=== PATIENT | male | born 1950 | race African-American/Black ===

== ENCOUNTER 2018-11-25 11:17 | Observation (INO) ==
[2018-11-25] MEDS ORDERED: ONDANSETRON 4 MG/2 ML VIAL IV PRN (13:55)
[2018-11-25] MEDS ORDERED: MAGNESIUM HYDROXIDE SUSP 30 ML UDCUP PO PRN (13:55)
[2018-11-25] MEDS ORDERED: ACETAMINOPHEN 325 MG TABLET PO PRN (13:55)
[2018-11-25] MEDS ORDERED: traMADol 50 MG TABLET PO PRN (13:55)
[2018-11-25 14:36] LABS: Basophils % 0.3 % (0.0-0.8); Eosinophils # 0.1 10*3/uL (0.0-0.87); Eosinophils % 1.4 % (0.00-10.9); Hematocrit 33.9 VOL% (42.0-52.0); Hemoglobin 11.2 GM/DL (14.0-18.0); Immature Granulocytes % 0.8 %; Immature Granulocytes Absolute 0.05 #; Lymphocytes # 1.2 10*3/uL (1.4-4.0); Lymphocytes % 18.6 % (21.2-54.2); Mean Corpuscular Volume 94.7 FL (87-102); Mean Platelet Volume 9.8 FL (9.6-12.0); Monocytes % 10.1 % (1.7-12.7); Neutrophils % 68.8 % (38.7-73.9); Platelet Count 160 T/CUMM (130-400); Red Blood Count 3.58 MC/CUMM (3.8-5.5); White Blood Count 6.2 T/CUMM (4-12)
[2018-11-25 14:53] LABS: Albumin 3.7 G/DL (3.4-5.0); Bilirubin,Total 0.5 MG/DL (0.2-1.0); Calcium 8.9 MG/DL (8.5-10.1); Osmolality,Calculated 260.9 MOS/KG (273-304); Total Protein 7.5 G/DL (6.4-8.3)
[2018-11-25] MEDS: SODIUM CHLORIDE 0.9% 1,000 ML IV SCH (15:52)
[2018-11-25 17:49] LABS: Apearance,Urine CLEAR (Clear); Bilirubin,Urine Negative (Negative); Blood, Urine Negative (Negative); Glucose,Urine (UA) Negative (Negative); Ketones,Urine Negative (Negative); Nitrite,Urine Negative (Negative); Protein,Urine Negative; RBC,Urine <1 /HPF (0-4); Urine Color Straw (Yellow); Urine Specific Gravity 1.004 (1.001-1.035); Urine Urobilinogen < 2.0 EU/DL (0.2-1.0); WBC,Urine 3 /HPF (0-6)
[2018-11-25] MEDS: carBAMazepine 200 MG TABLET PO SCH (21:35)
[2018-11-25] MEDS: MEMANTINE 10 MG TABLET PO SCH (21:35)
[2018-11-25] MEDS: DOCUSATE SODIUM 100 MG CAPSULE PO SCH (21:35)
[2018-11-25] MEDS: MEGESTROL 40 MG TABLET PO SCH (21:35)
[2018-11-26] MEDS: SODIUM CHLORIDE 0.9% 1,000 ML IV SCH ×4 (01:55→21:46)
[2018-11-26 05:32] LABS: Calcium 8.8 MG/DL (8.5-10.1)
[2018-11-26] MEDS: DOCUSATE SODIUM 100 MG CAPSULE PO SCH ×2 (08:55→21:42)
[2018-11-26] MEDS: LINACLOTIDE 145 MCG CAPSULE PO SCH (08:56)
[2018-11-26] MEDS: PANTOPRAZOLE 40 MG TABLET PO SCH (08:56)
[2018-11-26] MEDS: POTASSIUM CHLORIDE 20 MEQ TABLET PO SCH (08:56)
[2018-11-26] MEDS: FERROUS SULFATE 325 MG TABLET PO SCH (08:56)
[2018-11-26] MEDS: MEGESTROL 40 MG TABLET PO SCH ×2 (08:56→21:42)
[2018-11-26] MEDS: carBAMazepine 200 MG TABLET PO SCH ×2 (08:56→21:42)
[2018-11-26] MEDS: FUROSEMIDE 20 MG/2 ML VIAL IV SCH (08:56)
[2018-11-26] MEDS: NICOTINE 14 MG/24 HR PATCH TRANSDERM SCH (08:57)
[2018-11-26] MEDS ORDERED: TUBERCULIN SKIN TEST 0.1 ML SYRINGE INTRADERM ONE (15:37)
[2018-11-26] MEDS: MEMANTINE 10 MG TABLET PO SCH (21:42)
[2018-11-27 06:20] LABS: Calcium 8.6 MG/DL (8.5-10.1); Osmolality,Calculated 274.8 MOS/KG (273-304)
[2018-11-27] MEDS: SODIUM CHLORIDE 0.9% 1,000 ML IV SCH ×2 (07:28→17:58)
[2018-11-27] MEDS: PANTOPRAZOLE 40 MG TABLET PO SCH (08:56)
[2018-11-27] MEDS: DOCUSATE SODIUM 100 MG CAPSULE PO SCH ×2 (08:56→20:45)
[2018-11-27] MEDS: carBAMazepine 200 MG TABLET PO SCH ×2 (08:56→20:45)
[2018-11-27] MEDS: LINACLOTIDE 145 MCG CAPSULE PO SCH (08:56)
[2018-11-27] MEDS: FERROUS SULFATE 325 MG TABLET PO SCH (08:56)
[2018-11-27] MEDS: FUROSEMIDE 20 MG/2 ML VIAL IV SCH (08:56)
[2018-11-27] MEDS: NICOTINE 14 MG/24 HR PATCH TRANSDERM SCH (08:56)
[2018-11-27] MEDS: POTASSIUM CHLORIDE 20 MEQ TABLET PO SCH ×2 (08:56→20:45)
[2018-11-27] MEDS: MEGESTROL 40 MG TABLET PO SCH ×2 (08:56→20:45)
[2018-11-27] MEDS ORDERED: POTASSIUM CHLORIDE 20 MEQ TABLET PO ONE (11:07)
[2018-11-27] MEDS: MEMANTINE 10 MG TABLET PO SCH (20:45)
[2018-11-28] MEDS: SODIUM CHLORIDE 0.9% 1,000 ML IV SCH ×2 (04:05→16:01)
[2018-11-28 04:54] LABS: Calcium 8.5 MG/DL (8.5-10.1); Osmolality,Calculated 274.7 MOS/KG (273-304)
[2018-11-28] MEDS: LINACLOTIDE 145 MCG CAPSULE PO SCH (09:30)
[2018-11-28] MEDS: FUROSEMIDE 20 MG/2 ML VIAL IV SCH (09:30)
[2018-11-28] MEDS: carBAMazepine 200 MG TABLET PO SCH ×2 (09:31→20:29)
[2018-11-28] MEDS: NICOTINE 14 MG/24 HR PATCH TRANSDERM SCH (09:31)
[2018-11-28] MEDS: MEGESTROL 40 MG TABLET PO SCH ×2 (09:32→20:29)
[2018-11-28] MEDS: PANTOPRAZOLE 40 MG TABLET PO SCH (09:32)
[2018-11-28] MEDS: DOCUSATE SODIUM 100 MG CAPSULE PO SCH ×2 (09:33→20:29)
[2018-11-28] MEDS: FERROUS SULFATE 325 MG TABLET PO SCH (09:34)
[2018-11-28] MEDS: POTASSIUM CHLORIDE 20 MEQ TABLET PO SCH ×2 (09:34→20:29)
[2018-11-28] MEDS: MEMANTINE 10 MG TABLET PO SCH (20:29)
[2018-11-29] MEDS: SODIUM CHLORIDE 0.9% 1,000 ML IV SCH ×2 (02:21→23:01)
[2018-11-29 06:07] LABS: Basophils % 0.3 % (0.0-0.8); Eosinophils # 0.2 10*3/uL (0.0-0.87); Eosinophils % 2.9 % (0.00-10.9); Hematocrit 32.4 VOL% (42.0-52.0); Hemoglobin 10.8 GM/DL (14.0-18.0); Immature Granulocytes % 0.7 %; Immature Granulocytes Absolute 0.05 #; Lymphocytes # 1.7 10*3/uL (1.4-4.0); Lymphocytes % 25.2 % (21.2-54.2); Mean Corpuscular HGB Conc 33.3 GM/DL (32-36); Mean Corpuscular Volume 95.3 FL (87-102); Mean Platelet Volume 9.7 FL (9.6-12.0); Monocytes % 6.5 % (1.7-12.7); Neutrophils % 64.4 % (38.7-73.9); Platelet Count 178 T/CUMM (130-400); Red Cell Distribution Width 12.9 % (9.3-17.3); White Blood Count 6.8 T/CUMM (4-12)
[2018-11-29 06:21] LABS: Calcium 8.6 MG/DL (8.5-10.1); Osmolality,Calculated 275.5 MOS/KG (273-304)
[2018-11-29] MEDS: carBAMazepine 200 MG TABLET PO SCH ×2 (09:11→20:38)
[2018-11-29] MEDS: DOCUSATE SODIUM 100 MG CAPSULE PO SCH ×2 (09:11→20:38)
[2018-11-29] MEDS: POTASSIUM CHLORIDE 20 MEQ TABLET PO SCH ×2 (09:12→20:38)
[2018-11-29] MEDS: NICOTINE 14 MG/24 HR PATCH TRANSDERM SCH (09:12)
[2018-11-29] MEDS: PANTOPRAZOLE 40 MG TABLET PO SCH (09:12)
[2018-11-29] MEDS: FERROUS SULFATE 325 MG TABLET PO SCH (09:12)
[2018-11-29] MEDS: MEGESTROL 40 MG TABLET PO SCH ×2 (09:12→20:38)
[2018-11-29] MEDS: LINACLOTIDE 145 MCG CAPSULE PO SCH (09:12)
[2018-11-29] MEDS: FUROSEMIDE 20 MG/2 ML VIAL IV SCH (09:18)
[2018-11-29] MEDS: MEMANTINE 10 MG TABLET PO SCH (20:38)
[2018-11-30] MEDS: SODIUM CHLORIDE 0.9% 1,000 ML IV SCH ×3 (01:34→23:45)
[2018-11-30 05:38] LABS: Basophils % 0.6 % (0.0-0.8); Eosinophils # 0.1 10*3/uL (0.0-0.87); Eosinophils % 2.6 % (0.00-10.9); Hematocrit 29.8 VOL% (42.0-52.0); Hemoglobin 9.8 GM/DL (14.0-18.0); Immature Granulocytes % 0.7 %; Immature Granulocytes Absolute 0.04 #; Lymphocytes # 1.7 10*3/uL (1.4-4.0); Lymphocytes % 30.7 % (21.2-54.2); Mean Corpuscular HGB Conc 32.9 GM/DL (32-36); Mean Corpuscular Volume 96.4 FL (87-102); Mean Platelet Volume 9.5 FL (9.6-12.0); Monocytes % 6.7 % (1.7-12.7); Neutrophils % 58.7 % (38.7-73.9); Platelet Count 151 T/CUMM (130-400); Red Blood Count 3.09 MC/CUMM (3.8-5.5); Red Cell Distribution Width 12.8 % (9.3-17.3); White Blood Count 5.4 T/CUMM (4-12)
[2018-11-30 06:06] LABS: Calcium 8.4 MG/DL (8.5-10.1)
[2018-11-30] MEDS: NICOTINE 14 MG/24 HR PATCH TRANSDERM SCH (08:55)
[2018-11-30] MEDS: MEGESTROL 40 MG TABLET PO SCH ×2 (08:56→20:33)
[2018-11-30] MEDS: LINACLOTIDE 145 MCG CAPSULE PO SCH (08:56)
[2018-11-30] MEDS: carBAMazepine 200 MG TABLET PO SCH ×2 (08:56→20:33)
[2018-11-30] MEDS: POTASSIUM CHLORIDE 20 MEQ TABLET PO SCH ×2 (08:56→20:32)
[2018-11-30] MEDS: DOCUSATE SODIUM 100 MG CAPSULE PO SCH ×2 (08:56→20:32)
[2018-11-30] MEDS: FUROSEMIDE 20 MG/2 ML VIAL IV SCH (08:56)
[2018-11-30] MEDS: PANTOPRAZOLE 40 MG TABLET PO SCH (08:56)
[2018-11-30] MEDS: FERROUS SULFATE 325 MG TABLET PO SCH (08:56)
[2018-11-30] MEDS: MEMANTINE 10 MG TABLET PO SCH (20:32)
[2018-11-30] MEDS ORDERED: cloNIDine 0.1 MG TABLET PO SCH (21:00)
[2018-11-30] MEDS ORDERED: POLYETHYLENE GLYCOL POWDER 17 GM PACK PO SCH (21:00)
[2018-12-01 04:45] LABS: Basophils % 0.3 % (0.0-0.8); Eosinophils # 0.2 10*3/uL (0.0-0.87); Eosinophils % 3.1 % (0.00-10.9); Immature Granulocytes % 0.7 %; Immature Granulocytes Absolute 0.04 #; Lymphocytes # 1.6 10*3/uL (1.4-4.0); Lymphocytes % 27.1 % (21.2-54.2); Mean Corpuscular HGB Conc 33.3 GM/DL (32-36); Mean Corpuscular Volume 94.9 FL (87-102); Mean Platelet Volume 9.4 FL (9.6-12.0); Neutrophils % 60.8 % (38.7-73.9); Platelet Count 152 T/CUMM (130-400); Red Blood Count 3.16 MC/CUMM (3.8-5.5); Red Cell Distribution Width 12.6 % (9.3-17.3); White Blood Count 5.7 T/CUMM (4-12)
[2018-12-01 05:27] LABS: Calcium 8.7 MG/DL (8.5-10.1); Osmolality,Calculated 268.2 MOS/KG (273-304)
[2018-12-01] MEDS ORDERED: NIFEdipine 10 MG CAPSULE PO SCH (07:00)
[2018-12-01 07:41] VITALS: BP 128/82
[2018-12-01] MEDS ORDERED: FUROSEMIDE 20 MG/2 ML VIAL IV ONE (08:23)
== END 2018-12-01 08:35 | disposition home health service (06) ==
LOC: N.4E 12:22 → INTOOBSV 12:22
PROVIDERS: ADMIT Internal Medicine; ATTEND Internal Medicine